=== PATIENT | male | born 1950 | race Caucasian/White ===

== ENCOUNTER 2021-08-08 23:39 | Emergency (ER) | payer OTHER, MEDICARE, MEDICAID ==
[~2021-08-08] VITALS: Ht 162.6 cm; Wt 75.5 kg
--- NOTE | 2021-08-09 00:34 | NUR ---
SPOKE TO THE PHONE W/ PT'S , SUSY, W/ PT'S PERMISSION. PHONE NUMBER IS [phone]
[2021-08-09 00:44] LABS: ALANINE AMINOTRANSFERASE 22 U/L (12-78); ALBUMIN 3.5 G/DL (3.4-5.0); ALKALINE PHOSPHATASE 164 IU/L (46-116); ANION GAP 13 (8-16); ASPARTATE AMINO TRANSFERASE 14 U/L (10-37); BILIRUBIN,TOTAL 0.2 MG/DL (0.1-1.0); BLOOD UREA NITROGEN 31 MG/DL (7-18); BUN/CREATININE RATIO 16.7 (5.4-32.0); CALCIUM 8.2 MG/DL (8.5-10.1); CHLORIDE 102 MMOL/L (99-107); CREATININE 1.86 MG/DL (0.60-1.10); GLUCOSE 422 MG/DL (70-104); POTASSIUM 4.6 MMOL/L (3.5-5.1); SODIUM 138 MMOL/L (135-145); TOTAL CARBON DIOXIDE 22.8 MMOL/L (24-32); eGFR 36 ML/MIN
[2021-08-09 01:00] VITALS: BP 103/61
[2021-08-09 01:03] LABS: BASOPHILS # (AUTO) 0.1 X10'3 (0-0.2); EOSINOPHILS # (AUTO) 0.1 X10'3 (0-0.9); EOSINOPHILS % (AUTO) 1.8 % (0-6); HEMATOCRIT 37.7 % (42.0-52.0); HEMOGLOBIN 12.8 g/dl (14.0-17.9); LYMPHOCYTES # (AUTO) 1.7 X10'3 (1.1-4.8); LYMPHOCYTES % (AUTO) 26.1 % (21-51); MEAN CORPUSCULAR HEMOGLOBIN 31.1 PG (27.0-31.0); MEAN CORPUSCULAR HGB CONC 33.9 g/dL (33.0-36.5); MEAN CORPUSCULAR VOLUME 91.7 FL (78-98); MEAN PLATELET VOLUME 9.7 FL (7.4-10.4); MONOCYTES # (AUTO) 0.6 X10'3 (0-0.9); MONOCYTES % (AUTO) 8.5 % (2-12); NEUTROPHILS # (AUTO) 4.2 X10'3 (1.8-7.7); NEUTROPHILS % (AUTO) 62.6 % (42-75); PLATELET COUNT 200 X10'3 (140-440); RED BLOOD COUNT 4.11 X10'6 (4.70-6.10); RED CELL DISTRIBUTION WIDTH 14.2 % (11.5-14.5); WHITE BLOOD COUNT 6.7 X10'3 (4.5-11.0)
--- NOTE | 2021-08-09 01:37 | NUR ---
PT TO CT
[2021-08-09] MEDS ORDERED: HYDROcodone/acetaminophen 5mg/325mg tablet PO ONE (02:05)
[2021-08-09] MEDS ORDERED: normal saline 1000ml 1,000 ML IV ONE (02:05)
== END 2021-08-09 03:56 | disposition home or self-care (01) ==
LOC: ER 23:40
DX: M25.552 Pain in left hip (principal); E78.00 Pure hypercholesterolemia, unspecified; I10 Essential (primary) hypertension; E11.9 Type 2 diabetes mellitus without complications; Z95.0 Presence of cardiac pacemaker; Z88.8 Allergy status to other drugs, medicaments and biological substances; W19.XXXA Unspecified fall, initial encounter; Y93.89 Activity, other specified; Y92.89 Other specified places as the place of occurrence of the external cause; Y99.8 Other external cause status
CPT/HCPCS: 36415; 71045; 72131; 72192; 73502; 80053; 85025; 85610; 86885; 86900; 86901; 93005; 96360; 96361; 99285; J7030

== ENCOUNTER 2022-11-30 07:26 | Emergency (ER) | payer OTHER, MEDICARE, MEDICAID ==
[~2022-11-30] VITALS: Ht 160 cm; Wt 65.6 kg
[2022-11-30 07:31] VITALS: BP 129/64
[2022-11-30 08:18] LABS: CLARITY,URINE CLEAR (Clear); COLOR,URINE YELLOW (Yellow); GLUCOSE, URINE >=1000 mg/dl (Neg); KETONES,URINE 15 mg/dl (Neg); LEUKOCYTE ESTERASE ,URINE NEGATIVE (Neg); NITRITES, URINE NEGATIVE (Neg); OCCULT BLOOD,URINE NEGATIVE (Neg); PROTEIN,URINE NEGATIVE (Neg); UROBILINOGEN,URINE 0.2 E.U/dL (0.2-1.0)
[2022-11-30 08:21] LABS: UA COLLECTION TYPE CLN CATCH MIDSTREAM
[2022-11-30 08:24] LABS: BACTERIA,URINE FEW /HPF (Neg); RBC,URINE NONE SEEN /HPF (0-2); SQUAMOUS EPITHELIAL CELL,UR NONE SEEN /LPF (FEW); WBC,URINE 0-4 /HPF (0-4)
[2022-11-30 08:25] LABS: HYALINE CASTS 0-3 /LPF (NEGATIVE); MUCUS STRANDS NONE SEEN /LPF (Neg)
[2022-11-30 10:08] LABS: BASOPHILS % (AUTO) 0.4 % (0-1); EOSINOPHILS % (AUTO) 0.1 % (0-6); HEMATOCRIT 41.4 % (42.0-52.0); HEMOGLOBIN 13.5 g/dl (14.0-17.9); LYMPHOCYTES # (AUTO) 0.7 X10'3 (1.1-4.8); LYMPHOCYTES % (AUTO) 5.5 % (21-51); MEAN CORPUSCULAR HEMOGLOBIN 30.9 PG (27.0-31.0); MEAN CORPUSCULAR HGB CONC 32.6 g/dL (33.0-36.5); MEAN PLATELET VOLUME 9.5 FL (7.4-10.4); MONOCYTES # (AUTO) 0.3 X10'3 (0-0.9); MONOCYTES % (AUTO) 2.5 % (2-12); NEUTROPHILS # (AUTO) 11.6 X10'3 (1.8-7.7); NEUTROPHILS % (AUTO) 91.5 % (42-75); PLATELET COUNT 218 X10'3 (140-440); RED BLOOD COUNT 4.36 X10'6 (4.70-6.10); RED CELL DISTRIBUTION WIDTH 14.8 % (11.5-14.5); WHITE BLOOD COUNT 12.7 X10'3 (4.5-11.0)
[2022-11-30 10:20] LABS: ALANINE AMINOTRANSFERASE 29 U/L (12-78); ALBUMIN 4.2 G/DL (3.4-5.0); ALBUMIN/GLOBULIN RATIO 1.1 (1.1-1.5); ALKALINE PHOSPHATASE 108 IU/L (46-116); ANION GAP 20 (8-16); ASPARTATE AMINO TRANSFERASE 24 U/L (10-37); BILIRUBIN,TOTAL 0.3 MG/DL (0.1-1.0); BLOOD UREA NITROGEN 24 MG/DL (7-18); BUN/CREATININE RATIO 14.5 (10.0-20.0); CALCIUM 9.5 MG/DL (8.5-10.1); CHLORIDE 103 MMOL/L (99-107); CREATININE 1.66 MG/DL (0.60-1.10); GLUCOSE 354 MG/DL (70-104); LIPASE < 50 U/L (73-393); POTASSIUM 4.6 MMOL/L (3.5-5.1); SODIUM 141 MMOL/L (135-145); TOTAL CARBON DIOXIDE 17.9 MMOL/L (24-32); TOTAL PROTEIN 8.1 G/DL (6.4-8.2); eGFR 41 ML/MIN
== END 2022-11-30 15:24 | disposition left against medical advice (07) ==
LOC: ER 07:27
DX: R10.9 Unspecified abdominal pain (principal); Z53.21 Procedure and treatment not carried out due to patient leaving prior to being seen by health care provider
CPT/HCPCS: 36415; 80053; 81001; 83690; 85025; 99281

== ENCOUNTER 2023-10-24 16:56 | Emergency (ER) | payer OTHER, MEDICARE, MEDICAID ==
[~2023-10-24] VITALS: Ht 160 cm; Wt 59.1 kg
[2023-10-24 17:00] VITALS: TEMP 97.8
[2023-10-24] MEDS: normal saline 1000ML IV soln IVB ONE ×2 (19:34→20:36)
[2023-10-24 20:21] LABS: BILIRUBIN,URINE NEGATIVE (Neg); CLARITY,URINE CLEAR (Clear); COLOR,URINE STRAW (Yellow); GLUCOSE, URINE NEGATIVE (Neg); KETONES,URINE NEGATIVE (Neg); LEUKOCYTE ESTERASE ,URINE TRACE (Neg); NITRITES, URINE NEGATIVE (Neg); OCCULT BLOOD,URINE NEGATIVE (Neg); PH,URINE 7.5 (4.8-8.0); PROTEIN,URINE NEGATIVE (Neg); UROBILINOGEN,URINE 0.2 E.U/dL (0.2-1.0)
[2023-10-24 20:33] LABS: BASOPHILS # (AUTO) 0.1 X10'3 (0-0.2); BASOPHILS % (AUTO) 0.7 % (0-1); EOSINOPHILS # (AUTO) 0.1 X10'3 (0-0.9); EOSINOPHILS % (AUTO) 1.6 % (0-6); HEMATOCRIT 37.4 % (42.0-52.0); HEMOGLOBIN 12.3 g/dl (14.0-17.9); LYMPHOCYTES # (AUTO) 1.5 X10'3 (1.1-4.8); LYMPHOCYTES % (AUTO) 21.8 % (21-51); MEAN CORPUSCULAR HEMOGLOBIN 29.3 PG (27.0-31.0); MEAN CORPUSCULAR HGB CONC 32.9 g/dL (33.0-36.5); MEAN PLATELET VOLUME 9.8 FL (7.4-10.4); MONOCYTES # (AUTO) 0.5 X10'3 (0-0.9); NEUTROPHILS # (AUTO) 4.8 X10'3 (1.8-7.7); NEUTROPHILS % (AUTO) 68.9 % (42-75); PLATELET COUNT 154 X10'3 (140-440); RED CELL DISTRIBUTION WIDTH 15.2 % (11.5-14.5)
[2023-10-24 20:41] LABS: ALBUMIN 3.4 G/DL (3.4-5.0); ANION GAP 10 (8-16); BLOOD UREA NITROGEN 27 MG/DL (7-18); BUN/CREATININE RATIO 14.8 (10.0-20.0); CALCIUM 7.9 MG/DL (8.5-10.1); CHLORIDE 107 MMOL/L (99-107); CREATININE 1.82 MG/DL (0.60-1.10); GLUCOSE 81 MG/DL (70-104); SODIUM 143 MMOL/L (135-145); TOTAL CARBON DIOXIDE 26.3 MMOL/L (24-32); eCRCL 30 ML/MIN; eGFR 37 ML/MIN
[2023-10-24 20:47] LABS: UA COLLECTION TYPE CLN CATCH MIDSTREAM
[2023-10-24 20:48] LABS: SQUAMOUS EPITHELIAL CELL,UR FEW /LPF (FEW)
[2023-10-24 20:49] LABS: BACTERIA,URINE 2+ /HPF (Neg); WBC,URINE 0-4 /HPF (0-4)
[2023-10-24 20:56] LABS: URINE AMPHETAMINE SCREEN NEGATIVE (Neg); URINE BARBITUATE SCREEN NEGATIVE (Neg); URINE BENZODIAZEPINES SCREEN NEGATIVE (Neg); URINE CANNABINOID SCREEN NEGATIVE (Neg); URINE COCAINE SCREEN NEGATIVE (Neg); URINE METHADONE SCREEN NEGATIVE (Neg); URINE OPIATE SCREEN NEGATIVE (Neg); URINE PHENCYCLIDINE SCREEN NEGATIVE (Neg)
[2023-10-24] MEDS ORDERED: CEFU250T95 PO (21:21)
[2023-10-24] MEDS: CefTRIAXone/D5W-Rocephin 1gm 50 ML IV ONE (21:32)
[2023-10-24 22:26] VITALS: BP 145/69; PULSE 67; RESP 18; O2SAT 98
[2023-11-09] MEDS ORDERED: BENZ-111 PO (12:40)
[2023-11-09] MEDS ORDERED: DRON400T6 PO (12:40)
[2023-11-09] MEDS ORDERED: LISI10TA27 PO (12:40)
[2023-11-09] MEDS ORDERED: GLIM2TAB6 PO (12:40)
[2023-11-09] MEDS ORDERED: MULT-1141 PO (12:46)
[2023-11-09] MEDS ORDERED: LEVO25TA7 PO (12:46)
[2023-11-09] MEDS ORDERED: CEFU250T95 PO (12:46)
[2023-11-09] MEDS ORDERED: SERT50TA PO (12:46)
[2023-11-09] MEDS ORDERED: MELA5TAB12 PO (12:46)
[2023-11-09] MEDS ORDERED: CLON-527 PO (12:46)
[2023-11-09] MEDS ORDERED: SIMV5TAB58 PO (12:46)
[2023-11-12] MEDS ORDERED: KEP500T PO (12:30)
== END 2023-10-24 22:28 | disposition home or self-care (01) ==
LOC: ER 16:57
DX: R41.0 Disorientation, unspecified (principal); N39.0 Urinary tract infection, site not specified; E11.9 Type 2 diabetes mellitus without complications; E78.00 Pure hypercholesterolemia, unspecified; I10 Essential (primary) hypertension; Z88.8 Allergy status to other drugs, medicaments and biological substances; Z79.899 Other long term (current) drug therapy; Z95.0 Presence of cardiac pacemaker
CPT/HCPCS: 36415; 70450; 71045; 80048; 80305; 81001; 82140; 82948; 84145; 85025; 87088; 93005; 96361; 96365; 99285; J0696; J7030